=== PATIENT | female | born 1945 | race Caucasian/White ===

== ENCOUNTER 2017-03-02 15:13 | Inpatient (IN) | payer MEDICARE, OTHER ==
[~2017-03-02] VITALS: Ht 152.4 cm; Wt 77.2 kg
[~2017-03-02 15:13] MED LIST: ADVIL200 MG PO; B-12 100 MCG; CALCIUM 600 PLU1 TAB PO; CEPHALEXIN500 M1 PO; DUO-KAPS1 CAP PO; FLEXERIL10 MG PO; IBU600 MG PO; KEPPRA 500MG500 MG PO; KEPPRA1000 MG PO; LAMICTAL 25MG T25 MG PO; LAMICTAL150 MG PO; LORTAB 5/500 501 TAB PO; MULTI VITAMINS1 TAB PO; NATURE'S BLE1000 MCG PO; NATURE'S BLEN1200 MG PO; OMEGA 31000 MG; SYNTHROID0.05 MG/TA PO; SYNTHROID0.1 MG/TAB PO; VITAMIN C500 MG PO; VITAMIN D 400400 IU PO
[2017-04-08] VITALS (10 sets, daily range): BP systolic 96–213; BP diastolic 38–90; PULSE 66–83; TEMP 97.4–99.2
[2017-04-08] MEDS ORDERED: LAMICTAL XR300 MG (01:49)
[2017-04-09 00:43] VITALS: BP 96/45; PULSE 80; TEMP 98.2
[2017-04-09 05:06] VITALS: BP 115/50; PULSE 76; TEMP 98.2
[2017-04-09] MEDS ORDERED: ASPI325T6 PO (05:55)
[2017-04-09] MEDS ORDERED: NORCO 325 MG-7.1 TAB PO (05:56)
[2017-04-09] MEDS ORDERED: ULTRAM 50MG TAB50 MG PO (05:56)
[2017-04-09 06:26] LABS: HEMATOCRIT 32.4 % (37.0-47.0); HEMOGLOBIN 10.7 g/dl (12.5-16.0)
[2017-04-09 07:43] VITALS: BP 109/46; PULSE 84; TEMP 98.1
== END 2017-04-09 11:00 | disposition home or self-care (01) | DRG 483 ==
LOC: JCC 04-08 05:16
PROVIDERS: Orthopaedic Surgery
PROC: 0RRJ00Z Replacement of Right Shoulder Joint with Reverse Ball and Socket Synthetic Substitute, Open Approach (ICD-10-PCS; principal; 2017-04-08 07:30)
DX: M19.011 Primary osteoarthritis, right shoulder (principal)
CPT/HCPCS: A9284; C1713; C1776; J0690; J1100; J1885; J2250; J2405; J2704; J2795; J3010; J7120

== ENCOUNTER → 2018-07-11 | Outpatient (CLI) | payer MEDICARE, OTHER ==
[~2018-07-11] MED LIST changes: +ASPI325T6 PO; +LAMICTAL XR300 MG; +NORCO 325 MG-7.1 TAB PO; +ULTRAM 50MG TAB50 MG PO
== END ==
LOC: COL.RAD 12:45
DX: R22.1 Localized swelling, mass and lump, neck (principal); Z68.33 Body mass index [BMI] 33.0-33.9, adult

== ENCOUNTER 2018-07-15 20:44 | Emergency (ER) | payer MEDICARE, OTHER ==
[~2018-07-15] VITALS: Ht 149.9 cm; Wt 74.1 kg
[2018-07-15 20:55] VITALS: TEMP 98
[2018-07-15 23:05] VITALS: BP 138/70; PULSE 70
== END 2018-07-15 23:05 | disposition home or self-care (01) ==
LOC: COL.ER 20:44
DX: S01.81XA Laceration without foreign body of other part of head, initial encounter (principal); S80.02XA Contusion of left knee, initial encounter; W01.198A Fall on same level from slipping, tripping and stumbling with subsequent striking against other object, initial encounter; Y92.009 Unspecified place in unspecified non-institutional (private) residence as the place of occurrence of the external cause

== ENCOUNTER → 2019-12-20 | Outpatient (CLI) | payer MEDICARE, OTHER | LOC: MHCPAIN 10:18 | DX: M53.3 Sacrococcygeal disorders, not elsewhere classified (principal); M47.817 Spondylosis without myelopathy or radiculopathy, lumbosacral region; G89.29 Other chronic pain | CPT/HCPCS: G0463 ==

== ENCOUNTER → 2020-06-20 | Outpatient (CLI) | payer MEDICARE, OTHER | LOC: COL.RAD 09:12 | DX: M25.561 Pain in right knee (principal); Z96.653 Presence of artificial knee joint, bilateral | CPT/HCPCS: A9503 ==

== ENCOUNTER → 2020-08-30 | Outpatient (CLI) | payer MEDICARE, OTHER | LOC: COL.RAD 13:00 | DX: M79.671 Pain in right foot (principal) | CPT/HCPCS: J3301; Q9967 ==

== ENCOUNTER → 2021-02-26 | Outpatient (CLI) | payer MEDICARE, OTHER ==
[~2021-02-26] MED LIST changes: +NORCO 325 MG-51 TAB PO
== END ==
LOC: MHCPAIN 12:44
DX: M47.817 Spondylosis without myelopathy or radiculopathy, lumbosacral region (principal); M54.5 Low back pain; M53.3 Sacrococcygeal disorders, not elsewhere classified; G89.29 Other chronic pain
CPT/HCPCS: G0463

== ENCOUNTER → 2021-03-06 | Outpatient (CLI) | payer MEDICARE, OTHER | LOC: MHCPAIN 10:32 | DX: M47.817 Spondylosis without myelopathy or radiculopathy, lumbosacral region (principal); M54.5 Low back pain; M53.3 Sacrococcygeal disorders, not elsewhere classified | CPT/HCPCS: J1040; Q9967 ==

== ENCOUNTER → 2021-03-28 | Outpatient (CLI) | payer MEDICARE, OTHER | LOC: COL.RAD 03-27 09:00 | DX: M25.551 Pain in right hip (principal) | CPT/HCPCS: J3301; Q9967 ==

== ENCOUNTER → 2021-04-02 | Outpatient (CLI) | payer MEDICARE, OTHER | LOC: MHCPAIN 14:04 | DX: M47.817 Spondylosis without myelopathy or radiculopathy, lumbosacral region (principal); M54.5 Low back pain; M53.3 Sacrococcygeal disorders, not elsewhere classified | CPT/HCPCS: G0463 ==

== ENCOUNTER → 2021-05-05 | Outpatient (CLI) | payer MEDICARE, OTHER | LOC: COL.RAD 08:00 | DX: K21.9 Gastro-esophageal reflux disease without esophagitis (principal); K44.9 Diaphragmatic hernia without obstruction or gangrene ==

== ENCOUNTER 2021-07-07 23:37 | Emergency (ER) | payer MEDICARE, OTHER ==
[~2021-07-07] VITALS: Ht 152.4 cm; Wt 75.5 kg
[~2021-07-07 23:37] MED LIST changes: -NORCO 325 MG-51 TAB PO
[2021-07-07 23:44] VITALS: TEMP 97.2
[2021-07-08] MEDS ORDERED: NORCO 325 MG-51 TAB PO (00:51)
[2021-07-08 01:14] VITALS: BP 132/70; PULSE 77
== END 2021-07-08 01:14 | disposition home or self-care (01) ==
LOC: COL.ER 23:37
DX: S52.572A Other intraarticular fracture of lower end of left radius, initial encounter for closed fracture (principal); G40.909 Epilepsy, unspecified, not intractable, without status epilepticus; Z79.899 Other long term (current) drug therapy; W19.XXXA Unspecified fall, initial encounter
CPT/HCPCS: J3010

== ENCOUNTER 2022-06-08 15:45 | Outpatient (RCR) | payer MEDICARE, OTHER ==
[~2022-06-08 15:45] MED LIST changes: +NORCO 325 MG-51 TAB PO
== END 2022-06-10 | disposition home or self-care (01) ==
LOC: WSPT
DX: R29.898 Other symptoms and signs involving the musculoskeletal system (principal)

== ENCOUNTER → 2022-08-10 | Outpatient (RCR) | payer MEDICARE, OTHER | END | disposition home or self-care (01) | LOC: WSPT | DX: R29.898 Other symptoms and signs involving the musculoskeletal system (principal); R53.1 Weakness; Z98.1 Arthrodesis status; Z98.890 Other specified postprocedural states ==

== ENCOUNTER → 2023-02-05 | Outpatient (CLI) | payer MEDICARE, OTHER | LOC: COL.RAD 14:07 | DX: K44.9 Diaphragmatic hernia without obstruction or gangrene (principal); R19.00 Intra-abdominal and pelvic swelling, mass and lump, unspecified site | CPT/HCPCS: Q9967 ==

== ENCOUNTER → 2023-03-25 | Outpatient (CLI) | payer MEDICARE, OTHER ==
--- NOTE | 2023-03-22 12:46 | NUR ---
LMOM WITH INSTRUCTIONS AND CALL BACK NUMBER
[~2023-03-25] VITALS: Ht 152.4 cm; Wt 71.6 kg
[2023-03-25] VITALS (14 sets, daily range): BP systolic 108–144; BP diastolic 56–83; PULSE 65–71
[~2023-03-25] MED LIST changes: +AMOXICILLIN 8751 TAB PO; +ANTIVERT 12.512.5 MG PO; +CEFTIN500 MG PO; +DOXYCYCLINE HY100 MG PO; +FLONASE NASAL S16 GM NS; +GEMTESA75 MG PO; +K-DUR20 MEQ PO; +KEPPRA250 MG PO; +LAMICTAL200 MG PO; +MUCINEX1200 MG PO; +MULTIPLE VITAMI1 CAP PO; +OMEGA-3 1000 MG1 CAP PO; +OMNICEF 300MG300 MG PO; +VITAMIN D 50,1.25 MG PO; +ZYRTEC5 MG PO
== END ==
LOC: COL.RAD 07:00
DX: D89.0 Polyclonal hypergammaglobulinemia (principal)
CPT/HCPCS: 32109

== ENCOUNTER → 2023-06-28 | Outpatient (REF) | payer MEDICARE, OTHER ==
[~2023-06-28] MED LIST changes: -AMOXICILLIN 8751 TAB PO; -ANTIVERT 12.512.5 MG PO; -CEFTIN500 MG PO; -DOXYCYCLINE HY100 MG PO; -FLONASE NASAL S16 GM NS; -GEMTESA75 MG PO; -MUCINEX1200 MG PO; -MULTIPLE VITAMI1 CAP PO; -OMEGA-3 1000 MG1 CAP PO; -ZYRTEC5 MG PO
[2023-06-28 14:17] LABS: BAND 37 % (0-10); EOSINOPHIL 1 % (0-4); LYMPHOCYTE 0 % (20.0-51.0); NEUTROPHILS 50 % (42.0-75.2); PLATELET ESTIMATE NORMAL (NORMAL)
[2023-06-28 14:18] LABS: METAMYELOCYTE 1 % (0-0)
[2023-06-30 08:16] LABS: PATHOLOGY DIFF REVIEW OK
== END ==
LOC: ZCOL.LAB 13:59
PROVIDERS: Family Medicine
DX: C82.13 Follicular lymphoma grade II, intra-abdominal lymph nodes (principal)

== ENCOUNTER → 2023-07-26 | Outpatient (CLI) | payer MEDICARE, OTHER ==
[2023-07-26 11:10] LABS: ANISOCYTOSIS 1+; BAND 21 % (0-10); EOSINOPHIL 4 % (0-4); LYMPHOCYTE 6 % (20.0-51.0); NEUTROPHILS 64 % (42.0-75.2); PLATELET ESTIMATE NORMAL (NORMAL)
[2023-07-26 11:11] LABS: MICROCYTOSIS 1+
== END ==
LOC: ZCOL.LAB 10:24
PROVIDERS: Family Medicine
DX: C82.13 Follicular lymphoma grade II, intra-abdominal lymph nodes (principal)

== ENCOUNTER → 2023-08-02 | Outpatient (CLI) | payer MEDICARE, OTHER ==
[2023-08-02 11:29] LABS: BAND 33 % (0-10); EOSINOPHIL 3 % (0-4); LYMPHOCYTE 10 % (20.0-51.0); NEUTROPHILS 49 % (42.0-75.2); PLATELET ESTIMATE NORMAL (NORMAL)
== END ==
LOC: ZCOL.LAB 10:26
PROVIDERS: Family Medicine
DX: C82.13 Follicular lymphoma grade II, intra-abdominal lymph nodes (principal)

== ENCOUNTER 2023-10-15 12:55 | Emergency (ER) | payer MEDICARE, OTHER ==
[~2023-10-15] VITALS: Ht 152.4 cm; Wt 63.6 kg
[~2023-10-15 12:55] MED LIST changes: +AMOXICILLIN 8751 TAB PO
[2023-10-15 12:58] VITALS: TEMP 98.3
[2023-10-15 14:20] LABS: BASO # 0.1 K/mm3 (0.0-0.2); BASO % 1.1 % (0.0-2.0); EOS # 0.2 K/mm3 (0.0-0.7); EOS % 3.9 % (0.0-4.0); GRAN # 3.3 K/mm3 (1.4-6.5); GRAN % 57.6 % (42.2-75.2); HEMATOCRIT 37.6 % (37.0-47.0); HEMOGLOBIN 12.3 g/dl (12.5-16.0); LYMPH # 0.9 K/mm3 (1.2-3.4); LYMPH % 16.5 % (20.0-51.0); MEAN CELL VOLUME 100 fl (80.0-100.0); MEAN CORPUSCULAR HEMOGLOBIN 33 pg (27-31); MEAN CORPUSCULAR HGB CONC 33 g/dl (33.0-37.0); MEAN PLATELET VOLUME 8.6 fl (7.4-10.4); MONO # 1.1 K/mm3 (0.1-0.6); PLATELET COUNT 263 K/mm3 (130-400); RED BLOOD COUNT 3.76 M/mm3 (4.10-5.30); REDCELL DISTRIBUTION WIDTH-CV 14.6 % (11.5-14.5)
[2023-10-15 14:33] LABS: ALBUMIN 3.4 gm/dL (3.4-4.8); BILIRUBIN,TOTAL 0.3 mg/dL (0.2-1.2); CALCIUM 9.6 mg/dL (8.4-10.2); CREATININE, serum 0.63 mg/dL (0.57-1.11); POTASSIUM 3.9 mmol/L (3.5-4.5); TOTAL PROTEIN 6.9 gm/dL (6.2-8.1)
[2023-10-15] MEDS ORDERED: DOXYCYCLINE HY100 MG PO (14:49)
[2023-10-15 15:16] VITALS: BP 129/65; PULSE 82
== END 2023-10-15 14:56 | disposition home or self-care (01) ==
LOC: COL.ER 12:55
PROVIDERS: Emergency Medicine
DX: J32.9 Chronic sinusitis, unspecified (principal)

== ENCOUNTER → 2023-11-12 | Outpatient (CLI) | payer MEDICARE, OTHER ==
[~2023-11-12] MED LIST changes: +DOXYCYCLINE HY100 MG PO
[2023-11-12 18:27] LABS: BAND 17 % (0-10); EOSINOPHIL 4 % (0-4); LYMPHOCYTE 17 % (20.0-51.0); NEUTROPHILS 51 % (42.0-75.2); PLATELET ESTIMATE NORMAL (NORMAL)
== END ==
LOC: ZCOL.LAB 18:03
PROVIDERS: Family Medicine
DX: C82.13 Follicular lymphoma grade II, intra-abdominal lymph nodes (principal)

== ENCOUNTER 2023-11-20 14:20 | Emergency (ER) | payer MEDICARE ==
[~2023-11-20] VITALS: Ht 165.1 cm; Wt 62.7 kg
[2023-11-20 14:26] VITALS: TEMP 98
[2023-11-20] MEDS ORDERED: NS 1,000 ML IV SCH (14:45)
[2023-11-20 14:55] LABS: BASO % 1.1 % (0.0-2.0); EOS # 0.1 K/mm3 (0.0-0.7); EOS % 1.6 % (0.0-4.0); GRAN # 1.1 K/mm3 (1.4-6.5); HEMATOCRIT 39.6 % (37.0-47.0); HEMOGLOBIN 12.8 g/dl (12.5-16.0); LYMPH # 1.9 K/mm3 (1.2-3.4); LYMPH % 50.4 % (20.0-51.0); MEAN CELL VOLUME 98 fl (80.0-100.0); MEAN CORPUSCULAR HEMOGLOBIN 32 pg (27-31); MEAN CORPUSCULAR HGB CONC 32 g/dl (33.0-37.0); MEAN PLATELET VOLUME 8.5 fl (7.4-10.4); MONO # 0.6 K/mm3 (0.1-0.6); MONO % 16.4 % (1.7-9.3); PLATELET COUNT 201 K/mm3 (130-400); RED BLOOD COUNT 4.05 M/mm3 (4.10-5.30); REDCELL DISTRIBUTION WIDTH-CV 15.7 % (11.5-14.5)
[2023-11-20 15:08] LABS: ALBUMIN 3.5 gm/dL (3.4-4.8); BILIRUBIN,TOTAL 0.5 mg/dL (0.2-1.2); CALCIUM 9.7 mg/dL (8.4-10.2); CREATININE, serum 0.72 mg/dL (0.57-1.11); POTASSIUM 3.3 mmol/L (3.5-4.5); TOTAL PROTEIN 7.1 gm/dL (6.2-8.1)
[2023-11-20 15:11] LABS: PH 5.5 (5.0-8.5); URINE APPEARANCE CLOUDY (CLEAR/HAZY); URINE BLOOD 1+ (NEGATIVE); URINE COLOR YELLOW (YELLOW); URINE GLUCOSE NEGATIVE (NEGATIVE); URINE KETONE 1+ (NEGATIVE); URINE NITRATE NEGATIVE (NEGATIVE); URINE PROTEIN(semi-quant) 1+ (NEGATIVE)
[2023-11-20 15:14] LABS: TROPONIN-I 0.011 ng/mL (0.00-0.033)
[2023-11-20 15:29] LABS: INR 1.1 (0.8-3.0); PROTHROMBIN TIME 12.1 SECONDS (9.7-12.8)
[2023-11-20] MEDS ORDERED: cefTRIAXone 1 G in Water For Injection,Sterile 10 ML IV ONE (15:45)
[2023-11-20] MEDS ORDERED: CEFTIN500 MG PO (15:49)
[2023-11-20 16:28] VITALS: BP 155/56; PULSE 76
[2023-11-21 10:07] LABS: COLLECTION METHOD CATHETER
== END 2023-11-20 16:31 | disposition home or self-care (01) ==
LOC: COL.ER 14:20
PROVIDERS: Physician Assistant
DX: N39.0 Urinary tract infection, site not specified (principal); J32.0 Chronic maxillary sinusitis; C85.90 Non-Hodgkin lymphoma, unspecified, unspecified site
CPT/HCPCS: J0696; J7030

== ENCOUNTER → 2023-11-29 | Outpatient (CLI) | payer MEDICARE, OTHER ==
[~2023-11-29] MED LIST changes: +ANTIVERT 12.512.5 MG PO; +CEFTIN500 MG PO; +FLONASE NASAL S16 GM NS; +GEMTESA75 MG PO; +MUCINEX1200 MG PO; +MULTIPLE VITAMI1 CAP PO; +OMEGA-3 1000 MG1 CAP PO; +ZYRTEC5 MG PO
== END ==
LOC: MC.RAD 14:14
DX: Z12.31 Encounter for screening mammogram for malignant neoplasm of breast (principal)

== ENCOUNTER → 2024-02-11 | Outpatient (CLI) | payer MEDICARE, OTHER | LOC: COL.RAD 15:35 | DX: M79.662 Pain in left lower leg (principal) ==

== ENCOUNTER → 2024-05-31 | Outpatient (CLI) | payer MEDICARE, OTHER ==
[2024-05-31 18:38] LABS: BAND 12 % (0-10); EOSINOPHIL 10 % (0-4); LYMPHOCYTE 42 % (20.0-51.0); METAMYELOCYTE 4 % (0-0); NEUTROPHILS 24 % (42.0-75.2)
== END ==
LOC: COL.LAB 16:33
PROVIDERS: Family Medicine
DX: C82.13 Follicular lymphoma grade II, intra-abdominal lymph nodes (principal)

== ENCOUNTER 2024-06-02 09:50 | Emergency (ER) | payer MEDICARE, OTHER ==
[~2024-06-02] VITALS: Ht 149.9 cm; Wt 68.2 kg
[2024-06-02 09:58] VITALS: TEMP 98.4
[2024-06-02] MEDS ORDERED: Acetaminophen 325 MG TAB PO ONE (13:15)
[2024-06-02 13:19] VITALS: BP 153/85; PULSE 70
== END 2024-06-02 13:23 | disposition home or self-care (01) ==
LOC: COL.ER 09:50
DX: S01.01XA Laceration without foreign body of scalp, initial encounter (principal); W01.198A Fall on same level from slipping, tripping and stumbling with subsequent striking against other object, initial encounter; Y93.01 Activity, walking, marching and hiking; Y92.238 Other place in hospital as the place of occurrence of the external cause

== ENCOUNTER 2024-07-21 17:57 | Emergency (ER) | payer MEDICARE, OTHER ==
[~2024-07-21] VITALS: Ht 152.4 cm; Wt 66.8 kg
[2024-07-21 18:17] VITALS: TEMP 97.7
[2024-07-21] MEDS ORDERED: BACTRIM DS 8001 TAB PO (19:35)
[2024-07-21 19:42] VITALS: BP 37/86; PULSE 74
== END 2024-07-21 18:43 | disposition home or self-care (01) ==
LOC: COL.ER 17:57
DX: L03.115 Cellulitis of right lower limb (principal)